=== PATIENT | female | born 1985 | race Caucasian/White ===

== ENCOUNTER 2019-01-18 17:23 | Emergency (ER) | payer OTHER ==
[2019-01-18] MEDS ORDERED: predniSONE 20 MG TAB PO ONE (17:40)
[2019-01-18] MEDS ORDERED: ALBUTEROL/IPRATROPIUM 3 ML NEB NEB ONE (17:40)
[2019-01-18] MEDS ORDERED: FAMOTIDINE 20 MG TAB PO ONE (17:40)
[2019-01-18] MEDS ORDERED: diphenhydrAMINE 25 MG CAP PO ONE (17:40)
--- NOTE | 2019-01-18 17:51 | ER Report ---
History and Physical Time Seen By MD: 17:34 Hx. of Stated Complaint: PATIENT REPORTS HIVES AND ITCHING TO THE CHEST AND LEGS SINCE 1600. DOES NOT KNOW WHAT SHE IS ALLERGIC TO HPI/ROS CHIEF COMPLAINT: hives HISTORY OF PRESENT ILLNESS: PT is riding in a semi across from [place]. Around 4pm started with a hive on her winnie and arm. Hives have been moving and are on her back, chest, extremities. Pt states they feel warm and are itchy. Pt started to feel sob was she reached [place]. Pt denies any new detergents. No new meds. No new foods. PT denies any cold symptoms. never had this happen before. States "i feel so itchy". REVIEW OF SYSTEMS: Constitutional: No fever, no chills. Eyes: No discharge. ENT: No sore throat. Cardiovascular: No chest pain, no palpitations. Respiratory: No cough, + shortness of breath. Gastrointestinal: No abdominal pain, no vomiting. Genitourinary: No hematuria. Musculoskeletal: No back pain. Skin: + diffuse hives Neurological: No headache. Allergies: Coded Allergies: acetaminophen (Verified Allergy, Intermediate, NAUSEA , 01/18/19) ibuprofen (Verified Allergy, Intermediate, NAUSEA/VOMITING, 01/18/19) propoxyphene (Verified Allergy, Intermediate, NAUSEA , 01/18/19) Past Medical/Surgical History Pmhx: hyperbilirubinemia Pshx: [facility], appy, c-s x2, back epidurals, L hip block, liver bx Reviewed Nurses Notes: Yes Hx Smoking: Yes Smoking Status: Current: Every Day Smoker Hx Alcohol Use: No Constitutional Vital Sign - Last 24 Hours 01/18/19 01/18/19 01/18/19 01/18/19 17:31 17:55 17:55 18:00 Temp 97.8 Pulse 96 84 88 Resp 18 16 16 B/P (MAP) 143/92 Pulse Ox 94 95 O2 Delivery Room Air Room Air 01/18/19 01/18/19 18:16 18:50 Pulse 85 Resp 16 B/P (MAP) 142/85 (104) Pulse Ox 95 94 O2 Delivery Nasal Cannula Room Air O2 Flow Rate 2.0 Physical Exam General Appearance: The patient is alert, has no immediate need for airway protection and no signs of toxicity. Eyes: Pupils equal and round no pallor or injection, EOMI ENT: no pharyngeal erythema or exudates, Mucous membranes are moist, TM are nl b/l Respiratory: There are no retractions, lungs are clear to auscultation, No wheezing Cardiovascular: Regular rate and rhythm. pulses are equal and symmetrical Gastrointestinal: Abdomen is soft and non tender, no masses, bowel sounds normal, no guarding, no rigidity or rebound Neurological: Cranial nerves II-XII grossly intact, no sensory or motor loss Skin: Warm and dry, Two hives identified on pts left scapula area, + hive on right arm and a few on mid torso. Pt has has a hive between her 1 -2 toe on left foot Musculoskeletal: Neck is supple non tender, no vertebral tenderness Extremities are nontender, non swollen and have full range of motion. DIFFERENTIAL DIAGNOSIS: After history and physical exam differential diagnosis was considered for allergic reaction to unknown cause, viral illness Medical Decision Making ED Course/Re-evaluation ED Course Give benadryl, pepcid, prednisone and neb treatment. PT feels more comfortable but still mildly itchy. Pt told to continue benadryl as out patient and given a dose of prednisone to take tomorrow. Decision to Disposition Date: Jan 18, 2019 Decision to Disposition Time: 18:14 Depart Departure Latest Vital Signs Vital Signs Date Time Temp Pulse Resp B/P (MAP) Pulse Ox O2 Delivery O2 Flow Rate FiO2 01/18/19 18:50 85 16 142/85 (104) 94 Room Air 01/18/19 18:16 2.0 01/18/19 17:31 97.8 Impression: Primary Impression: Urticaria of unknown origin Condition: Improved Disposition: HOME OR SELF-CARE Patient Instructions: Urticaria (ED) Additional Instructions: You may continue benadryl 25-50mg every 6 hours as needed for itching and hives. We are sending you home with a dose of prednisone for you to take in the morning. It is unclear the etiology of your rash. If you continue to have hives recommend you follow up with audit officer when you arrive back home. ISABEL NUÑEZ DO Jan 18, 2019 17:51
[2019-01-18 18:50] VITALS: BP 142/85
[2019-01-19] MEDS ORDERED: predniSONE 20 MG TAB PO ONE (18:15)
== END 2019-01-18 18:51 | disposition home or self-care (01) ==
LOC: ER 17:43
DX: L50.9 Urticaria, unspecified (principal)
CPT/HCPCS: 94640; 99283; J7512; Q0163